=== PATIENT | female | born 1995 | race Hispanic/Latino ===

== ENCOUNTER 2017-12-09 21:55 | Emergency (ER) | payer OTHER ==
[2017-12-09 22:49] VITALS: BP 133/68; PULSE 71; RESP 18; TEMP 98.1; O2SAT 100; BMI 25.8
--- NOTE | 2017-12-09 23:22 | ED PDOC ---
Arrival/HPI - General Historian: Patient <Paddy Randhawa A - Last Filed: 12/09/17 23:19> <Joey Zhang - Last Filed: 12/10/17 01:09> - General Chief Complaint: Foreign Body Time Seen by Provider: 12/09/17 22:40 - History of Present Illness Narrative History of Present Illness (Text): 12/09/17 23:19 22yo female who present to ED for removal of a stuck tampon. states she forgot that she had the tampon and had sex pushing the tampon inside. Notes that tampon has been stuck for 4hours. She denies pain, discharge, fever, odor, any other complaint. (Paddy Randhawa A) Past Medical History - Provider Review Nursing Documentation Reviewed: Yes - Infectious Disease Hx of Infectious Diseases: None - Cardiac Hx Cardiac Disorders: No - Pulmonary Hx Respiratory Disorders: No - Neurological Hx Neurological Disorder: No - HEENT Hx HEENT Disorder: No - Renal Hx Renal Disorder: No - Endocrine/Metabolic Hx Endocrine Disorders: No - Hematological/Oncological Hx Blood Disorders: No - Integumentary Hx Dermatological Disorder: No - Musculoskeletal/Rheumatological Hx Musculoskeletal Disorders: No - Gastrointestinal Hx Gastrointestinal Disorders: No - Genitourinary/Gynecological Hx Genitourinary Disorders: No - Psychiatric Hx Psychophysiologic Disorder: Yes Hx Substance Use: No Other/Comment: ADHD - Anesthesia Hx Anesthesia: No <Paddy Randhawa A - Last Filed: 12/09/17 23:19> Family/Social History - Physician Review Nursing Documentation Reviewed: Yes Family/Social History: Unknown Family HX Smoking Status: Never Smoked Hx Alcohol Use: No Hx Substance Use: No <Paddy Randhawa A - Last Filed: 12/09/17 23:19> Allergies/Home Meds <Paddy Randhawa A - Last Filed: 12/09/17 23:19> <Joey Zhang - Last Filed: 12/10/17 01:09> Allergies/Adverse Reactions: Allergies No Known Allergies Allergy (Verified 12/09/17 22:49) Home Medications: Home Meds Medication Instructions Recorded Confirmed Dextroamphetamine/Amphetamine 20 mg PO PRN PRN 12/09/17 12/09/17 [Adderall 20 mg Tablet] Review of Systems - Physician Review All systems were reviewed & negative as marked: Yes - Review of Systems Constitutional: Normal Eyes: Normal ENT: Normal Respiratory: Normal Cardiovascular: Normal Gastrointestinal: Normal Genitourinary Female: Other (Lodged tampon) Musculoskeletal: Normal Skin: Normal Neurological: Normal Endocrine: Normal Hemo/Lymphatic: Normal Psychiatric: Normal <Paddy Randhawa - Last Filed: 12/09/17 23:19> Physical Exam Vital Signs Reviewed: Yes Temperature: Afebrile Blood Pressure: Normal Pulse: Regular Respiratory Rate: Normal Appearance: Positive for: Well-Appearing, Non-Toxic, Comfortable Pain Distress: None Mental Status: Positive for: Alert and Oriented X 3 - Systems Exam Head: Present: Atraumatic, Normocephalic Pupils: Present: PERRL Extroacular Muscles: Present: EOMI Conjunctiva: Present: Normal Mouth: Present: Moist Mucous Membranes Neck: Present: Normal Range of Motion Respiratory/Chest: Present: Clear to Auscultation, Good Air Exchange. No: Respiratory Distress, Accessory Muscle Use Cardiovascular: Present: Regular Rate and Rhythm, Normal S1, S2. No: Murmurs Abdomen: No: Tenderness, Distention, Peritoneal Signs Genitourinary/Pelvic Exam: Present: Other (Tampon noted inside the vaginal vault ). No: Odor Back: Present: Normal Inspection Upper Extremity: Present: Normal Inspection. No: Cyanosis, Edema Lower Extremity: Present: Normal Inspection. No: Edema Neurological: Present: GCS=15, CN II-XII Intact, Speech Normal Skin: Present: Warm, Dry, Normal Color. No: Rashes Psychiatric: Present: Alert, Oriented x 3, Normal Insight, Normal Concentration <Paddy Randhawa A - Last Filed: 12/09/17 23:19> Vital Signs Temp Pulse Resp BP Pulse Ox 12/09/17 22:48 98.1 F 71 18 133/68 100 Medical Decision Making <Paddy Randhawa - Last Filed: 12/09/17 23:19> <Joey Zhang - Last Filed: 12/10/17 01:09> ED Course and Treatment: 12/09/17 23:21 Tampon was removed with the speculum that was used for the pelvic exam. No bleeding. No drainage. No odor. she tolerated procedure. (Paddy Randhawa) - PA / CARE NAVIGATOR / Resident Statement MD/DO has reviewed & agrees with the documentation as recorded. <Joey Zhang - Last Filed: 12/10/17 01:09> Disposition/Present on Arrival - Present on Arrival Any Indicators Present on Arrival: No History of DVT/PE: No History of Uncontrolled Diabetes: No Urinary Catheter: No History of Decub. Ulcer: No History Surgical Site Infection Following: None - Disposition Have Diagnosis and Disposition been Completed?: Yes Disposition Time: 23:25 Patient Plan: Discharge <Paddy Randhawa - Last Filed: 12/09/17 23:19> <Joey Zhang - Last Filed: 12/10/17 01:09> - Disposition Diagnosis: Foreign body in vagina Disposition: HOME/ ROUTINE Condition: STABLE Discharge Instructions (ExitCare): Removal of Rectal Foreign Body Additional Instructions: Follow up with your doctor Return to ED for any new or worsening symptom Referrals: PCP,NO [Primary Care Provider] - [facility] [[facility]] - Follow up with primary Forms: [employer] ([place]ux[place]ish)
== END 2017-12-09 23:35 | disposition home or self-care (01) ==
LOC: ED 21:55
DX: T19.2XXA Foreign body in vulva and vagina, initial encounter (principal); X58.XXXA Exposure to other specified factors, initial encounter; F90.9 Attention-deficit hyperactivity disorder, unspecified type